=== PATIENT | female | born 1970 | race Caucasian/White ===

== ENCOUNTER 2017-09-16 07:30 | Inpatient (IN) | payer BC ==
[2017-09-18] MEDS ORDERED: Acetaminophen 500 MG Tab PO ONE (09:30)
[2017-09-18] MEDS ORDERED: Gabapentin 300 MG Cap PO ONE (09:30)
[2017-09-18] MEDS ORDERED: Celecoxib 200 MG Cap PO ONE (09:30)
[2017-09-18] MEDS ORDERED: Scopolamine 1.5 MG Transdermal Patch TOP ONE (09:45)
[2017-09-18] MEDS ORDERED: Dextrose 5%-Lactated Ringers 1,000 ML IV SCH (10:00)
[2017-09-18] MEDS ORDERED: Ondansetron 4 MG/2 ML SDV ONE (10:10)
[2017-09-18] MEDS ORDERED: Rocuronium 50 MG/5 ML Vial ONE (10:10)
[2017-09-18] MEDS ORDERED: Succinylcholine 200 MG/10 ML MDV ONE (10:10)
[2017-09-18] MEDS ORDERED: Neostigmine Methylsulfate 1 MG/ML 5 ML Syringe ONE (10:10)
[2017-09-18] MEDS ORDERED: Glycopyrrolate 0.2 MG/ML 5 ML MDV ONE (10:10)
[2017-09-18] MEDS ORDERED: Propofol 200 MG/20 ML SDV ONE (10:10)
[2017-09-18] MEDS ORDERED: Dexamethasone 4 MG/ML SDV ONE (10:10)
[2017-09-18] MEDS ORDERED: Ketamine 500 MG/5 ML MDV IV SCH (11:15)
[2017-09-18] MEDS ORDERED: Ropivacaine 60 ML, Dexamethasone 8 MG, EPINEPHrine 0.4 MG, Sodium Chloride 0.9% 17.6 ML NERVRT SCH ×4 (11:15)
[2017-09-18] MEDS ORDERED: Lidocaine 2% 100 MG/5 ML Syringe IVPUSH ONE (11:15)
[2017-09-18] MEDS ORDERED: cefOXitin 2 GM in Sodium Chloride 0.9% 50 ML IV ONE (11:30)
[2017-09-18] MEDS ORDERED: cefOXitin 2 GM Vial ONE (13:37)
[2017-09-18] MEDS ORDERED: cefOXitin 2 GM Vial IRR ONE (14:14)
[2017-09-18] MEDS ORDERED: hydrOXYzine HCl 100 MG/2 ML SDV IM ONE (15:12)
[2017-09-18] MEDS ORDERED: fentaNYL 100 MCG/2 ML SDV IVPUSH ONE (15:13)
[2017-09-18] MEDS ORDERED: Metoclopramide 10 MG/2 ML SDV IVPUSH PRN (17:00)
[2017-09-18] MEDS ORDERED: Labetalol 20 MG/4 ML Syringe IVPUSH PRN (17:00)
[2017-09-18] MEDS ORDERED: Ondansetron 4 MG/2 ML SDV IVPUSH PRN (17:00)
[2017-09-18] MEDS ORDERED: hydrOXYzine HCl 100 MG/2 ML SDV IM PRN (17:00)
[2017-09-18] MEDS ORDERED: Pantoprazole 40 MG Vial IVPUSH SCH (17:00)
[2017-09-18] MEDS ORDERED: diphenhydrAMINE 50 MG/ML SDV IVPUSH PRN (17:00)
[2017-09-18] MEDS: Lidocaine 0.4%/D5W 2 GM/500 ML BAG IV SCH (17:11)
[2017-09-18] MEDS: Acetaminophen Soln 650 MG/20.3 ML UD Cup PO SCH ×2 (17:12→23:09)
[2017-09-18] MEDS ORDERED: MVI, Adult with Vitamin K 10 ML, Thiamine 100 MG, Chromium/Copper/Mang/Selen/Zn 1 ML in... IV SCH ×4 (18:00)
[2017-09-18] MEDS: cefOXitin 2 GM in Sodium Chloride 0.9% 50 ML IV SCH (20:20)
[2017-09-18] MEDS: Heparin Sodium 5,000 Units/ML Vial SUBCUT SCH (20:56)
[2017-09-18] MEDS: Gabapentin 250 MG/5 ML Solution ML 470 ML Bottle PO SCH (22:17)
[2017-09-19] MEDS: Dextrose 5%-Lactated Ringers 1,000 ML IV SCH ×2 (00:45→07:16)
[2017-09-19] MEDS: cefOXitin 2 GM in Sodium Chloride 0.9% 50 ML IV SCH ×2 (02:46→08:59)
[2017-09-19] MEDS ORDERED: Iohexol 647 MG/ML 50 ML SDV PO STA (03:12)
[2017-09-19] MEDS: Lidocaine 0.4%/D5W 2 GM/500 ML BAG IV SCH (04:59)
[2017-09-19] MEDS: Acetaminophen Soln 650 MG/20.3 ML UD Cup PO SCH ×4 (06:25→23:51)
[2017-09-19] MEDS ORDERED: Ondansetron 4 MG Tab.DIS PO PRN (07:20)
[2017-09-19] MEDS ORDERED: Dextrose 5%-Lactated Ringers 1,000 ML IV SCH (07:30)
[2017-09-19] MEDS ORDERED: TERCONAZOLE TOP SCH (07:30)
[2017-09-19] MEDS ORDERED: Celecoxib 200 MG Cap PO SCH (08:00)
--- NOTE | 2017-09-19 08:11 | PN ---
DATE OF SERVICE: 09/19/2017 SUBJECTIVE: Sunita is postop day #1 following a sleeve gastrectomy. She has been up ambulating. Pain has been controlled. Tolerating oral liquids. REVIEW OF SYSTEMS: Remainder of review of systems negative for any pertinent positives and negatives. OBJECTIVE: GENERAL: Sunita Galindo is a 46-year-old female, alert and oriented. VITAL SIGNS: TPR 99, 79, 16, blood pressure 123/65. HEENT: Negative. NECK: Supple. HEART: Regular rate and rhythm. LUNGS: Clear. ABDOMEN: Dressings dry and intact. EXTREMITIES: Without peripheral edema. ASSESSMENT: Laparoscopic sleeve gastrectomy. PLAN: 1. Decrease IV to 100 mL per hour. Discontinue cardiac catheterization technologist. Dressing off, may shower. Step-2 gastric bypass diet without cereal. Restart home medications. Levothyroxine 50 mcg p.o. daily, Vyvanse 40 mg p.o. daily, Terazol one dose topical as directed, clonazepam 2 mg p.o. at bedtime. 2. Zofran ODT 4 mg p.o. q.4 hours p.r.n. nausea. Communication order was written to give 3 med cups per our and to record at bedside. 3. Good pulmonary toilet. 4. We will evaluate p.r.n. or in a.m. Sandy Mays PA-C /[id number]
[2017-09-19] MEDS: Heparin Sodium 5,000 Units/ML Vial SUBCUT SCH ×2 (08:59→19:49)
[2017-09-19] MEDS ORDERED: Non-Formulary Medication 1 Each (Lisdexamfetamine Dimesylate [Vyvanse] 40 MG) PO SCH (09:00)
[2017-09-19] MEDS ORDERED: Clobetasol 0.05% Crm 30 GM Tube TOP SCH (09:00)
[2017-09-19] MEDS: SCOPOLAMINE PATCH CHECK TOP SCH (09:03)
[2017-09-19] MEDS: Levothyroxine 50 MCG Tab PO SCH (09:08)
--- NOTE | 2017-09-19 09:38 | CR ---
UGI wo KUB CLINICAL HISTORY: Status post Kimberlee-en-Y FINDINGS: Patient has undergone Kimberlee-en-Y gastric bypass. There is contrast in the distal esophagus , gastric remanent and proximal small bowel on the first image. Delayed image shows contrast in the mi d to distal small bowel. No extravasation is seen. There is some patchy density in the left lower lobe. Impression: Status post recent Kimberlee-en-Y gastric bypass No extravasation or obstruction seen Partially visualized patchy density in the left lower lobe. If clinically relevant ,chest x-ray recom mended
[2017-09-19] MEDS: Gabapentin 250 MG/5 ML Solution ML 470 ML Bottle PO SCH ×3 (11:05→21:37)
[2017-09-19] MEDS ORDERED: diphenhydrAMINE 25 MG Cap PO PRN (11:38)
[2017-09-19] MEDS ORDERED: Pantoprazole 40 MG Delayed-Release Granules 1 Packet PO SCH (16:00)
[2017-09-19] MEDS ORDERED: MVI, Adult with Vitamin K 10 ML, Thiamine 100 MG, Chromium/Copper/Mang/Selen/Zn 1 ML in... IV SCH ×4 (16:00)
[2017-09-19] MEDS ORDERED: ClonazePAM 1 MG Tab PO SCH (21:00)
[2017-09-20] MEDS: Acetaminophen Soln 650 MG/20.3 ML UD Cup PO SCH (05:29)
[2017-09-20] MEDS ORDERED: Cyanocobalamin (Vitamin B12) 1,000 MCG/ML SDV IM ONE (09:00)
[2017-09-20] MEDS: Levothyroxine 50 MCG Tab PO SCH (09:12)
[2017-09-20] MEDS: Gabapentin 250 MG/5 ML Solution ML 470 ML Bottle PO SCH (09:13)
[2017-09-20] MEDS: SCOPOLAMINE PATCH CHECK TOP SCH (09:13)
[2017-09-20] MEDS: Heparin Sodium 5,000 Units/ML Vial SUBCUT SCH (09:23)
--- NOTE | 2017-09-22 11:31 | DISCH ---
FINAL DIAGNOSIS: Morbid obesity. SECONDARY DIAGNOSES: 1. Marked hepatomegaly. 2. Paraesophageal diaphragmatic hernia. ADDITIONAL DIAGNOSES: 1. Attention deficit disorder. 2. History of hypertension. 3. Impaired glucose tolerance. PROCEDURES: Done on 09/18/2017, laparoscopic sleeve gastrectomy with liver biopsy and repair of paraesophageal diaphragmatic hernia. HOSPITAL COURSE: This 46-year-old female was presenting with longstanding morbid obesity and increasingly significant comorbidities. After preoperative evaluation and discussion, she wished to proceed with a laparoscopic sleeve gastrectomy. This was done, along with liver biopsy and repair of paraesophageal hernia, on the date of admission without difficulty. Postoperatively, she has done well. It is notable that we checked the hemoglobin A1c preoperatively, it was 6.3, indicating impaired glucose tolerance, but this should resolve with the weight loss associated with the sleeve gastrectomy. Otherwise, she will be discharged home with Tylenol p.r.n., gabapentin 300 mg t.i.d. x1 week, and Dilaudid 2 to 4 mg p.o. daily, #30. Some Dilaudid is being added, as she is allergic to the Celebrex. Otherwise, she will continue her usual home medications and follow up with Sandy Mays PA-C, [facility] in [place] on 09/30/2017, and the patient will be instructed to maintain a liquid diet for 1 month postoperatively.
--- NOTE | 2017-09-26 08:40 | OR ---
DATE OF PROCEDURE: 09/18/2017 PREOPERATIVE DIAGNOSIS: Morbid obesity. POSTOPERATIVE DIAGNOSES: 1. Morbid obesity. 2. Marked hepatomegaly. 3. Paraesophageal diaphragmatic hernia. OPERATIVE PROCEDURE: 1. Laparoscopic sleeve gastrectomy (22195). 2. Geronimo-Cut needle liver biopsy (26285). 3. Repair of paraesophageal diaphragmatic hernia with mesh (22379). ANESTHESIA: General. LINE TECHNICIAN: Sandy Mays PA-C. INDICATION FOR PROCEDURE: This is a 46-year-old female presenting with longstanding morbid obesity and increasingly significant comorbidities. After preoperative evaluation and discussion, the patient wished to proceed with a sleeve gastrectomy. Potential risks of the procedure including bleeding, infection, leaks from the GI tract closure, as well as possibility of cardiopulmonary, septic, or hemorrhagic complications leading to were discussed, and the patient wishes to proceed. DETAILS OF PROCEDURE: The patient was taken to the operating room and placed in a supine position. After general endotracheal anesthesia was induced, she was converted to a lithotomy position, and the abdomen was prepped and draped. At 15 cm inferior and 5 cm left of xiphoid process, transverse incision was made. The peritoneal cavity entered under direct vision with an Optiview trocar, inflated to 15 mmHg pressure with CO2. Laparoscope was then reinserted. No underlying trocar insertion site injuries were seen. Following this, bilateral subcostal transversus abdominis plane blocks were placed with direct visualization of the needle in the correct plane and standard solution being injected. Following this, 5 additional trocars were placed across the upper mid abdomen, and general exploration was undertaken. The patient was noted to have a marked hepatomegaly with liver volume being roughly 2 to 3 times normal and liver grossly fatty infiltrated. Geronimo-Cut needle biopsies were obtained from left lobe of the liver. Minimal bleeding from the biopsy sites was controlled with electrocautery. At this point, the dissection began on the area of the esophagogastric junction. The patient was noted to have moderate-sized paraesophageal diaphragmatic hernia. The peritoneum to the right of the esophagogastric junction and then to the left and anteriorly was then freed up, and this allowed dissection behind the esophagogastric junction. As the hernia was being reduced, no lipoma of significance was noted. Eventually, the retroesophageal area was well dissected and the crural repair then accomplished with a series of 0 Ethibond sutures reinforced with PTFE pledgets, further reinforced with segment of Phasix mesh cut in a U-shaped configuration and positioned underneath the distal esophagus overlying the crural repair and up along the sides of the crura on each side for roughly 1 cm along the esophagus. This was positioned such that the Seprafilm side of the mesh faced the esophagus, fixation was not felt to be necessary, and correct position was confirmed at the conclusion of the procedure as well. At this point, the greater curvature omentum was initially divided away from the omentum, and then with the Harmonic scalpel, this continued upward to the gastric vessels including the highest and posterior short gastric vessels. Dissection of the upper medial fundus away from the left douglas was then completed. Dissection then continued, dividing the omentum away from the greater curvature of the stomach, then extending downward onto the antrum to a point 2 cm proximal to the pyloric sphincter. Some areolar attachments behind the stomach were then taken down with Harmonic Scalpel as well. At that point, the stomach appeared to be prepared for the sleeve gastrectomy. The anterior aspect of the antrum was then marked with electrocautery beginning 2 cm proximal to the pylorus and continued downward to the incisura angularis going leftward, with care taken to avoid overtightening of the area around the incisura angularis. The first three firings of the sleeve gastrectomy were then accomplished with non-reinforced black loads, and at that point, a 32-Portuguese suction tube was placed orally per Anesthesia and manipulated along the lesser curvature and then into the antrum. This was then pulled up against the lesser curvature, where suction was applied. The remainder of the sleeve gastrectomy was then accomplished with a combination of reinforced black and reinforced purple loads, and at that point, the gastrectomy phase was concluded. Staple line was inspected and felt to be satisfactory. The staple line was then reinforced with fibrin sealant, focusing on the proximal and distal aspects of the gastrectomy, and the omentum was pulled up along the gastrectomy staple line, where this remained fixed with the aid of the fibrin sealant, and at that point, leak test was accomplished. The tube was taken off suction, pulled roughly intermediate up into the body of the stomach, and air was then injected while the gastrectomy site was flooded with antibiotic-containing saline solution. No air bubbles or other signs of leak or bleeding were seen. At this point, the surgical specimen was delivered from the field through the left lateral trocar site. A single Stewart-Tompkins drain was then placed along the upper aspect of the gastrectomy staple line and from there into the area of the splenic fossa to help drain that area. The trocars were then sequentially removed and peritoneal cavity deflated. Incisions were closed with some 4-0 Vicryl skin stitch, and the patient was taken to the recovery room in satisfactory condition. Physician medicine assistant, Sandy Mays, played an essential role in assisting in this case, helping to position the patient, retract structures as needed as well as suturing and cutting sutures when indicated. Her presence improved the patient's safety and decreased operative time. Chriss Swan MD /[id number]
== END 2017-09-20 11:30 | disposition home or self-care (01) | DRG 403 ==
LOC: JP.SDSSCHI 09-18 09:07 → JP.SDS 09-18 09:07 → EDSTATUS 09-18 10:00 → JP.2SS 09-18 15:00
PROVIDERS: ADMIT Surgery; ATTEND Surgery
PROC: 0BUT4JZ Supplement Diaphragm with Synthetic Substitute, Percutaneous Endoscopic Approach (ICD-10-PCS; principal; 2017-09-18)
PROC: 0DB64Z3 Excision of Stomach, Percutaneous Endoscopic Approach, Vertical (ICD-10-PCS; principal; 2017-09-18)
PROC: 3E0T3BZ Introduction of Anesthetic Agent into Peripheral Nerves and Plexi, Percutaneous Approach (ICD-10-PCS; principal; 2017-09-18)
PROC: 0FB24ZX Excision of Left Lobe Liver, Percutaneous Endoscopic Approach, Diagnostic (ICD-10-PCS; principal; 2017-09-18)
DX: E66.01 Morbid (severe) obesity due to excess calories (principal); Z68.42 Body mass index [BMI] 45.0-49.9, adult; K44.9 Diaphragmatic hernia without obstruction or gangrene; I10 Essential (primary) hypertension; F41.9 Anxiety disorder, unspecified; E03.9 Hypothyroidism, unspecified; R73.02 Impaired glucose tolerance (oral); Z88.5 Allergy status to narcotic agent; Z88.2 Allergy status to sulfonamides; R16.0 Hepatomegaly, not elsewhere classified; K76.0 Fatty (change of) liver, not elsewhere classified
CPT/HCPCS: 36415; 74240; 74240-26; 82962; 83036; 86850; 86900; 86901; 88307; 88313; A9270-GY; C1781; C9113; J0171; J0330; J0694; J1100; J1644; J2001; J2405; J2704; J2710; J2795; J3010; J3410; J3411; J3420; J7030; J7042; J7050; Q9967